=== PATIENT | male | born 1945 | race Caucasian/White ===

== ENCOUNTER → 2016-08-01 12:08 | Outpatient (CLI) | payer MEDICARE ==
[2016-08-01 14:08] LABS: BASOPHILS 0.3 % (0.0-2.0); EOSINOPHILS 3.6 % (0-7); HEMATOCRIT 46.8 % (42.0-54.0); HEMOGLOBIN 15.4 g/dL (13.5-17.5); IMMATURE GRANULOCYTES 0.3 % (0-5); LYMPHOCYTES 19.9 % (15-50); MCH 29.8 pg (26.0-34.0); MCHC 32.9 g/dL (31.0-37.0); MCV 90.5 fL (80.0-100.0); MEAN PLATELET VOLUME 9.8 fL (7.4-10.4); MONOCYTES 12.1 % (2-11); NEUTROPHILS 63.8 % (40-80); PLATELET COUNT 257 10x3/uL (130-400); RBC 5.17 10x6/uL (4.20-6.10); RDW 14.7 % (11.5-14.5); WBC 7.6 10x3/uL (4.8-10.8)
[2016-08-02 14:21] LABS: IMMUNOGLOBULIN E 205 IU/mL (0-100)
== END | disposition home or self-care (01) ==
LOC: D.RT 12:08
PROVIDERS: Internal Medicine Pulmonary Disease
DX: J44.9 Chronic obstructive pulmonary disease, unspecified (principal)

== ENCOUNTER → 2017-10-15 08:28 | Outpatient (CLI) | payer MEDICARE | END | disposition home or self-care (01) | LOC: D.RT 08:28 | DX: J98.11 Atelectasis (principal) ==

== ENCOUNTER → 2018-05-18 08:15 | Outpatient (CLI) | payer MEDICARE | END | disposition home or self-care (01) | LOC: D.RAD 08:15 | DX: M54.16 Radiculopathy, lumbar region (principal) ==

== ENCOUNTER → 2018-10-15 08:34 | Outpatient (CLI) | payer MEDICARE | END | disposition home or self-care (01) | LOC: D.RT 08:34 | PROVIDERS: ATTEND Internal Medicine Pulmonary Disease | DX: J44.9 Chronic obstructive pulmonary disease, unspecified (principal) ==

== ENCOUNTER → 2019-04-05 09:13 | Outpatient (CLI) | payer MEDICARE | END | disposition home or self-care (01) | LOC: D.CT 09:13 | PROVIDERS: ATTEND Internal Medicine Pulmonary Disease | DX: J98.11 Atelectasis (principal) ==

== ENCOUNTER → 2019-06-02 08:49 | Outpatient (CLI) | payer MEDICARE | END | disposition home or self-care (01) | LOC: D.HCCARDIO 08:49 | PROVIDERS: ATTEND Internal Medicine Cardiovascular Disease | DX: I25.10 Atherosclerotic heart disease of native coronary artery without angina pectoris (principal) ==

== ENCOUNTER 2019-06-17 06:22 | Outpatient (CLI) | payer MEDICARE ==
[~2019-06-17] VITALS: Ht 167.6 cm; Wt 100.0 kg
--- NOTE | ~2019-06-17 | HEMODYNAMI ---
PATIENT:RADHA NICOLAS MEDICAL RECORD: [id number] : 47 LOCATION:[facility] ADMISSION DATE: 06/17/19 Generatedon:06/17/20198:25 Patient name: RADHA NICOLAS Patient #: [id number] SSN: [id number] : 1945 Date of study: 06/17/2019 Page: Of Hemodynamic Procedure Report Patient Data Patient Demographics Procedure consent was obtained First Name: RADHA Gender: Male Last Name: MARIA ISABEL : 1945 Middle Initial: ADELIA Age: 74 year(s) Patient #: [id number] Race: SSN: [id number] Additional ID: [id number] Contact details [address]: [address] [place] [address] State: [place] City: [place] Zip code: [address] Admission Admission Data Admission Date: 06/17/2019 Admission Time: 6:22 Arrival Date: 06/17/2019 Arrival Time: 8:00 Admit Source: Other Insurance Payor: Medicare [facility] #: [id number] Height (in.): 66.14 BSA: 2.09 (m2) Height (cm.): 168 BMI: 35.43 (kg/m2) Weight (lbs.): 220.46 Weight (kg.): 100 Lab Results Lab Result Date: 06/17/2019 Lab Result Time: 0:00 Biochemistry Name Units Result Min Max BUN mg/dl 24 --(----)-* 7 18 Creatinine mg/dl 1 --(--*-)-- 0.6 1.3 eGFR ml/min 90 --(*---)-- 90 120 NONAFRICAN CBC Name Units Result Min Max Hemoglobin g/dl 16 --(--*-)-- 13.5 17.5 Procedure Procedure Types Cath Procedure Diagnostic Procedure LHC LHC w/Coronaries Sedation Charges Moderate Sedation up to 30 minutes Procedure Description Procedure Date Procedure Date: 06/17/2019 Procedure Start Time: 8:08 Procedure End Time: 8:21 Procedure Staff Name Function Keith Hall MD Performing Physician Marlene Figueredo RT Monitor Denisha Richardson RT Scrub Shaun Davalos RN Nurse Procedure Data Cath Procedure Fluoroscopy Diagnostic fluoroscopy Total fluoroscopy Time: 3.8 time: 3.8 min min Diagnostic fluoroscopy Total fluoroscopy dose: dose: 1041 mGy 1041 mGy Contrast Material Contrast Material Type Amount (ml) Isovue 300 64 Entry Location Entry Primary Successful Side Size Upsize Upsize Entry Closure Morales ccessful Closure Location (Fr) 1 (Fr) 2 (Fr) Remarks Device Remarks Radial Right 6 Fr Mechanical artery Short Compression Estimated blood loss: 5 ml Diagnostic catheters Device Type Used For End Catheter Placement DIAGNOSTIC Demarco 110cm Multi-vessel 5Fr catheter ([id number]) Angiography Procedure Complications No complications Procedure Medications Medication Administration Route Dosage 0.9% NaCl I.V. 100 ml/hr Oxygen etCO2 Nasal cannula 2 l/min Heparin Flush Bag added to field 2 bags (1000units/500ml NS) Lidocaine 2% added to field 20 Radial Cocktail added to field 1 syringe (Verapamil 2mg/Nitro 400mcg/Heparin 1500units) Versed I.V. 2 mg Fentanyl I.V. 100 mcg Radial Cocktail I.A. 1 syringe (Verapamil 2mg/Nitro 400mcg/Heparin 1500units) Hemodynamics Rest BSA: 2.09 (m2) HGB: 16 (g/dl) O2 Consumption: Estimated: 240.48 (ml/min) O2 Cons umption indexed: Estimated:115.06 (ml/min/m) Heart Rate: 69 (bpm) Pressure Samples Time Site Value (mmHg) Purpose Heart Use Rate(bpm) 8:11 LV 113/-8,4 Snapshot 90 Snapshots Pre Cath Intra NCS Post Cath Vital Signs Time Heart Resp SPO2 etCO2 NIBP (mmHg) Rhythm Pain Sedation Rate (ipm) (%) (mmHg) Status Level (bpm) 7:58:27 68 18 94 0 113/87(98) NSR 0 (11) 10(A) , No pain 8:02:29 72 18 95 0 122/81(102) NSR 0 (11) 10(A) , No pain 8:06:34 71 11 92 21.2 115/80(92) NSR 0 (11) 10(A) , No pain 8:10:38 70 11 94 35.7 129/78(95) NSR 0 (11) 10(A) , No pain 8:14:50 88 12 93 33.4 110/66(81) NSR 0 (11) 9(A) , No pain 8:18:54 77 13 93 35.7 114/73(92) NSR 0 (11) 9(A) , No pain Medications Time Medication Route Dose Verified Delivered Reason Notes Effectiveness by by 7:59:23 0.9% NaCl I.V. 100 Shaun Shaun Per ml/hr Susannah Davalos physician RN RN 7:59:31 Oxygen etCO2 2 l/min Shaun Shaun for low 02 Nasal Lorigan Susannah sats cannula RN RN 7:59:41 Heparin Flush added 2 bags Shaun Shaun used for Bag to Susannah Davalos procedure (1000units/500ml field RN RN NS) 7:59:53 Lidocaine 2% added 20ml Shaun Shaun for local to vial Lorigan Lorigan anesthetic RN RN 8:00:05 Radial Cocktail added 1 Shaun Shaun used for (Verapamil to syringe Lorigan Katarinaigan procedure 2mg/Nitro RN RN 400mcg/Heparin 1500units) 8:06:58 Versed I.V. 2 mg Shaun Shaun for sedation Susannah Davalos RN RN 8:07:10 Fentanyl I.V. 100 mcg Shaun Shaun for sedation Susannah Davalos RN RN 8:10:42 Radial Cocktail I.A. 1 Shaun Keith for (Verapamil syringe Susannah Hall MD vasodilation 2mg/Nitro RN 400mcg/Heparin 1500units) Procedure Log Time Note 7:41:11 Diagnostic Cath Status : Elective 7:41:38 Shaun Davalos RN sent for patient. Start room use. 7:41:39 Time tracking: Regular hours (M-F 7:00 - 5:00) 7:41:45 Plan of Care:Hemodynamics will remain stable., Cardiac rhythm will remain stable., Comfort level will be maintained., Respiratory function will remain adequate., Patient/ family verbilizes understanding of procedure., Procedure tolerated without complication., Recovers from procedure without complications.. 7:46:52 Informed consent obtained and on chart 7:47:16 Admit Source: Other 7:47:21 Arrival Date: 06/17/2019 8:00:00 AM 7:47:39 Insurance Payor : Medicare 7:47:56 Patient Height : 66.14 inches 7:48:00 Patient Weight : 220.46 lbs 7:48:44 Lab Result : eGFR NONAFRICAN 90 ml/min 7:48:44 Lab Result : Hemoglobin 16 g/dl 7:48:44 Lab Result : BUN 24 mg/dl 7:48:44 Lab Result : Creatinine 1 mg/dl 7:48:54 Patient received from Pre/Post Procedure Room to CCL 2 Alert and oriented. Tansferred to table in Supine position. 7:48:56 Warm blankets applied, and brandon hugger turned on for patient comfort. 7:48:56 Correct patient and procedure confirmed by team. 7:48:57 ECG and BP/O2 sat monitors applied to patient. 7:49:05 Risk of Mortality: 0.4 7:49:08 Risk of blood transfusion: 0.9 7:49:11 Risk of ADOLFO: 0.6 7:49:18 1) 90+ Normal kidney functon but urine findings or structural abnormalities or genetic trait point to kidney disease. 7:49:20 Maximum allowable contrast dose (3.7 X eGFR X 0.75)249 ml. 7:53:30 Vital chart was started 7:59:23 0.9% NaCl 100 ml/hr I.V. was administered by Shaun Davalos RN; Per physician; Verbal order read back and verified. 7:59:31 Oxygen 2 l/min etCO2 Nasal cannula was administered by Shaun Davalos RN; for low 02 sats; Verbal order read back and verified. 7:59:41 Heparin Flush Bag (1000units/500ml NS) 2 bags added to field was administered by Shaun Davalos RN; used for procedure; Verbal order read back and verified. 7:59:53 Lidocaine 2% 20ml vial added to field was administered by Shaun Davalos RN; for local anesthetic; Verbal order read back and verified. 8:00:05 Radial Cocktail (Verapamil 2mg/Nitro 400mcg/Heparin 1500units) 1 syringe added to field was administered by Shaun Davalos RN; used for procedure; Verbal order read back and verified. 8:01:38 Baseline sample Acquired. 8:01:42 Rhythm: sinus rhythm 8:01:43 Full Disclosure recording started 8:01:48 H&P Date Dictated: 06/17/2019 Within 30 days and on chart., H&P Addendum completed by physician on day of procedure. (MUST COMPLETE FOR ALL OUTPATIENTS). 8:01:50 Pre-procedure instructions explained to patient. 8:01:50 Pre-op teaching completed and patient verbalized understanding. 8:01:52 Family in patients room. 8:01:53 Patient NPO since Midnight. 8:01:55 Is the patient allergic to Iodine/contrast media? No. 8:01:56 Was the patient premedicated? Yes 8:01:57 Is patient on blood thinner?No 8:01:59 Patient diabetic? No. 8:02:02 Previous problem with sedation/anesthesia? No ? 8:02:04 Snore? Yes 8:02:05 Sleep apnea? Yes 8:02:06 Deviated septum? No 8:02:06 Opens mouth fully? Yes 8:02:07 Sticks out tongue? Yes 8:02:09 Airway obstruction? Yes copd 8:02:13 Dentures? Yes in tight 8:02:17 Pre procedure: right dorsailis pedis pulse 2+ Normal; easily identifiable; not easily obliterated 8:02:20 Pre procedure: left dorsailis pedis pulse 2+ Normal; easily identifiable; not easily obliterated 8:02:23 Patient pain scale 0/10 ?. 8:02:28 IV patent on arrival in left forearm with 0.9% NaCl at KVO. 8:02:33 Lab results completed and on chart. 8:02:39 Right Radial & Right Groin area was prepped with chlora-prep and draped in sterile fashion 8:02:40 Alarms reviewed by R. N. 8:02:41 Sharps counted by scrub and verified by R.N. 8:02:42 Physician arrived 8:02:43 --------ALL STOP TIME OUT------ 8:02:43 Final Timeout: patient, procedure, and site verified with staff and physician. All members of the team are in agreement. 8:02:45 Right Radial & Right Groin site verified by team. 8:02:49 Fire Safety Assessment: A--An alcohol-based skin anteseptic being used preoperatively., C--Open oxygen or nitrous oxide is being used., D--An ESU, laser, or fiber-optic light is being used. 8:02:52 Physical assessment completed. ASA score P 2 - A patient with mild systemic disease as per Keith Hall MD. 8:02:56 Sedation plan: IV Moderate Sedation Medication:Versed, Fentanyl 8:03:00 Use device set Radial Dx or PCI 8:03:01 ACIST Syringe (77991) opened to sterile field. 8:03:01 Medline Cath Pack ([id number]) opened to sterile field. 8:03:01 Bag Decanter (2002S) opened to sterile field. 8:03:02 ACIST Hand Control (66559) opened to sterile field. 8:03:02 ACIST Manifold (77589) opened to sterile field. 8:03:03 Tegaderm 4 x 4 (1626W) opened to sterile field. 8:03:03 MBrace Wrist Support ([id number]) opened to sterile field. 8:03:04 NEEDLE Cook 21G 4cm Radial (H86633) opened to sterile field. 8:03:06 SHEATH 6FR RAIN (3972270) opened to sterile field. 8:03:07 EMERALD Guide Wire (302-485) opened to sterile field. 8:04:46 Zero performed for pressure channel P1 8:05:55 Zero performed for pressure channel P1 8:06:58 Versed 2 mg I.V. was administered by Shaun Davalos RN; for sedation; Verbal order read back and verified. 8:07:10 Fentanyl 100 mcg I.V. was administered by Shaun Davalos RN; for sedation; Verbal order read back and verified. 8:08:39 Procedure started. 8:08:45 Local anesthetic to right radial artery with Lidocaine 2% by Keith Hall MD.INITIAL ACCESS ONLY 8:10:05 A 6 Fr Short sheath was inserted into the Right Radial artery 8:10:13 A DIAGNOSTIC Demarco 110cm 5Fr catheter (776634) was advanced over the wire and used for Multi-vessel Angiography. 8:10:42 Radial Cocktail (Verapamil 2mg/Nitro 400mcg/Heparin 1500units) 1 syringe I.A. was administered by Keith Hall MD; for vasodilation; Verbal order read back and verified. 8:11:36 EF : 55 % 8:12:06 Injector settings: Ml/sec: 5, Volume: 15, 8:12:26 LCA angiography performed. 8:12:34 Injector settings: Ml/sec: 3, Volume: 6, 8:18:22 RCA angiography performed. 8:18:25 Injector settings: Ml/sec: 3, Volume: 6, 8:19:37 Catheter removed. 8:19:41 ZEPHYR REGULAR TR BAND (959842) opened to sterile field. 8:19:57 ACCDominant side:Right 8:20:03 Sheath removed intact; hemostasis achieved with Mechanical Compression to the Right Radial artery. 8:20:15 Procedure ended.(Physican Out) 8:20:26 Fluoroscopy time 03.80 minutes. 8:20:29 Fluoroscopy dose: 1041 mGy 8:20:29 Flurop Dose total: 1041 8:20:34 Dose Area Product 09160 mGy/cm. 8:20:42 Contrast amount:Isovue 300 64ml. 8:20:45 Maximum allowable dose exceeded? No. 8:20:46 Sharps counted by scrub and verified by R.N. 8:20:48 [place] band inflated with 10cc of air. 8:20:50 Insertion/operative site no bleeding no hematoma. 8:20:55 Post right radial artery:stable 8:20:56 Post Procedure Pulses reassessed and unchanged 8:20:59 Post procedure rhythm: unchanged. 8:21:02 Estimated blood loss: 5 ml 8:21:04 Post procedure instruction explained to patient.Patient verbalizes understanding. 8:21:05 Patient needs reinforcement of post procedure teaching. 8:21:18 Procedure type changed to Cath procedure, Diagnostic procedure, LHC, C w/Coronaries, Sedation Charges, Moderate Sedation up to 30 minutes 8:21:19 Procedure and supply charges have been captured, reviewed, submitted and are correct. 8:21:23 Procedure Complication : No complications 8:21:25 Vital chart was stopped 8:21:30 [facility] Findings: MVD- CABG consult 8:21:31 Operative report dictated upon procedure completion. 8:21:32 See physician's report for complete and final results. 8:21:41 Report given to Pre/Post Procedure Room. 8:21:44 Patient transfered to Pre/Post Procedure Room with Stretcher. 8:21:49 Procedure ended. 8:21:49 Full Disclosure recording stopped 8:21:54 End room use (Document Last) Device Usage Item Name Manufacture Quantity Catalog Hospital Part Current Minima l Lot# / Number Charge Number Stock Stock Serial# Code ACIST Acist 1 82305 966678 284913 923014 20 Syringe Medical (62095) Systems Inc Medline Medline 1 [id number] 33444 316871 5 Cath Pack ([id number]) Bag Microtek 1 2001S 095060 92772 369100 5 Decanter Medical Inc. (2001S) ACIST Hand Acist 1 00539 292881 858598 431636 5 Control Medical (77684) Systems Inc ACIST Acist 1 35677 361048 842054 592229 5 Manifold Medical (96311) Systems Inc Tegaderm 4 3M 1 1626W 369430 555230 643736 5 x 4 (1626W) MBrace Advanced 1 140-0250-00 911095 54980 478597 5 Wrist Vascular Support Dynamics ([id number]) NEEDLE Cook Cook Medical 1 U04021 186408 270752 249798 5 21G 4cm Radial (M82461) SHEATH 6FR Cardinal 1 5369617 153227 1441283 786863 5 RAIN Health (7989683) EMERALD Cardinal 1 502-653 121355 753635 892959 5 Guide Wire Health (495-052) DIAGNOSTIC Terumo 1 40-7517 084952 512886 716095 5 Demarco 110cm 5Fr catheter (586245) ZEPHYR Cardinal 1 627758 323560 7779390 316648 5 REGULAR TR Health BAND (040990) Signature Audit [place] Stage Time Signature Unsigned Intra-Procedure 06/17/2019 Marlene Figueredo 8:22:59 AM RT(R) Intra-Procedure 06/17/2019 Shaun 8:24:35 AM Susannah GRANT Intra-Procedure 06/17/2019 Keith Hall MD 8:25:10 AM Signatures Performing Physician : Signature : Keith Hall MD Date : Time : Monitor : Marlene Terell RT Signature : Date : Time : Nurse : Shaun Lorigan Signature : RN Date : Time : [address] [place] [address]
[2019-06-17] MEDS ORDERED: TRELEGY ELLIPT1 EACH INH (06:36)
[2019-06-17] MEDS ORDERED: ALBUTEROL SULF8.5 GM INH (06:38)
[2019-06-17] MEDS ORDERED: HCTZ25 MG PO (06:38)
[2019-06-17] MEDS ORDERED: FLUTICASONE PRO16 GM NASAL (06:38)
[2019-06-17] MEDS ORDERED: LISINOPRIL10 MG PO (06:39)
[2019-06-17] MEDS ORDERED: IPRAT-ALBUT 0.5-3 ML UPD (06:39)
[2019-06-17] MEDS ORDERED: MUCINEX600 MG PO (06:39)
[2019-06-17] MEDS ORDERED: SINGULAIR10 MG PO (06:39)
[2019-06-17] MEDS ORDERED: K-DUR20 MEQ PO (06:41)
[2019-06-17] MEDS ORDERED: GLUCOSAMINE HC500 MG PO (06:41)
[2019-06-17] MEDS ORDERED: RED YEAST RICE600 MG PO (06:41)
[2019-06-17] MEDS ORDERED: FERROUS SULFAT325 MG PO (06:41)
[2019-06-17] MEDS ORDERED: MULTI-DAY VITAM1 TAB PO (06:42)
[2019-06-17] MEDS ORDERED: VITAMIN D31000 UNIT PO (06:42)
[2019-06-17 06:50] VITALS: BP 126/87; BMI 35.6
[2019-06-17 07:04] LABS: BASOPHILS 0.3 % (0-2); EOSINOPHILS 2.7 % (0-7); IMMATURE GRANULOCYTES 0.5 % (0-5); LYMPHOCYTES 15.9 % (15-50); MCH 30.4 pg (26.0-34.0); MCV 89.4 fL (80.0-100.0); MEAN PLATELET VOLUME 9.3 fL (7.4-10.4); MONOCYTES 10.3 % (2-11); NEUTROPHILS 70.3 % (40-80); PLATELET COUNT 283 10x3/uL (130-400); RBC 5.26 10x6/uL (4.20-6.10); RDW 14.6 % (11.5-14.5); WBC 6.3 10x3/uL (4.8-10.8)
[2019-06-17 07:39] LABS: ALT (SGPT) 30 U/L (10-68); CALC OSMOLALITY 279 mosm/kg (275-300); CALCIUM 9.2 mg/dL (8.5-10.1); CARBON DIOXIDE 24.4 mmol/L (21.0-32.0); CHLORIDE - SERUM 104 mmol/L (98-107); CHOL - HDL RATIO 3.1 ratio (2.3-4.9); CHOLESTEROL, TOTAL 214 mg/dL (0-200); GLUCOSE 94 mg/dL (74-106); HDL CHOLESTEROL 69 mg/dL (32-96); LDL CHOLESTEROL 134 mg/dL (0-100); LDL-HDL RATIO 1.9 ratio (1.5-3.5); POTASSIUM - SERUM 4.3 mmol/L (3.5-5.1); SODIUM 138 mmol/L (136-145); TRIGLYCERIDE 59 mg/dL (30-200); UREA NITROGEN 24 mg/dL (7-18); eGFR NON AFRICAN AMERICAN 78 mL/min (90-120)
--- NOTE | 2019-06-17 08:30 | NUR ---
PATIENT ARRIVED TO ROOM 6, PLACED ON CM. VSS ON 2L NC. RIGHT Z BAND WITH WRIST IMMOBILIZER IN PLACE, NO S/S OF BLEEDING OR HEMATOMA.
--- NOTE | 2019-06-17 08:45 | NUR ---
PATIENT AWAKE, SITTING UP IN BED. VSS ON 2L NC. RIGHT RADIAL SITE IS CDI, NO S/S OF BLEEDING OR HEMATOMA. PATIENT EATING SANDWICH AND DRINKING SODA PER REQUEST, NO N/V. NO C/O PAIN, NUMBNESS, OR TINGLING.
--- NOTE | 2019-06-17 09:15 | NUR ---
PATIENT AWAKE, FAMILY PRESENT AT BEDSIDE. PHYSICIAN AT BEDSIDE TO UPDATE PATIENT AND FAMILY. VSS ON 2L NC. RIGHT RADIAL SITE IS CDI, NO S/S OF BLEEDING OR HEMATOMA.
--- NOTE | 2019-06-17 09:45 | NUR ---
2CC OF AIR REMOVED FROM Z BAND, NO S/S OF BLEEDING OR HEMATOMA. NO C/O PAIN, NUMBNESS, OR TINGLING. VSS ON 1L NC. NO N/V.
--- NOTE | 2019-06-17 10:15 | NUR ---
3CC OF AIR REMOVED FROM Z BAND, NO S/S OF BLEEDING OR HEMATOMA. NO C/O PAIN, NUMBNESS, OR TINGLING. VSS ON ROOM AIR. NO N/V. FAMILY PRESENT AT BEDSIDE.
[2019-06-17 10:40] VITALS: Ht 167.6 cm; Wt 100.0 kg
--- NOTE | 2019-06-17 10:45 | NUR ---
DR BERG PRESENT AT BEDSIDE TO UPDATE PATIENT AND FAMILY. VSS ON ROOM AIR. REMAINING AIR REMOVED FROM Z BAND, NO S/S OF BLEEDING OR HEMATOMA. DRESSING APPLIED IS CDI. NO N/V. NO C/O PAIN, NUMBNESS, OR TINGLING.
--- NOTE | 2019-06-17 11:15 | NUR ---
IV REMOVED. WRITTEN AND VERBAL DISCHARGE EDUCATION GIVEN TO PATIENT AND SPOUSE, BOTH VOICE UNDERSTANDING. RIGHT RADIAL DRESSING IS CDI, NO S/S OF BLEEDING OR HEMATOMA.
--- NOTE | 2019-06-17 11:25 | NUR ---
PATIENT VOIDED WITHOUT DIFFICULTY. PATIENT TRANSPORTED VIA WHEELCHAIR TO CAR WITH SPOUSE DRIVING, ALL BELONGINGS WITH PATIENT.
== END 2019-06-17 11:25 ==
LOC: D.CATH 06:22
PROVIDERS: ATTEND Internal Medicine Cardiovascular Disease
DX: I25.119 Atherosclerotic heart disease of native coronary artery with unspecified angina pectoris (principal); R94.30 Abnormal result of cardiovascular function study, unspecified; I10 Essential (primary) hypertension; J44.9 Chronic obstructive pulmonary disease, unspecified; R06.00 Dyspnea, unspecified

== ENCOUNTER 2019-06-25 07:34 | Inpatient (IN) | payer MEDICARE ==
[~2019-06-25] VITALS: Ht 167.6 cm; Wt 108.2 kg
[~2019-06-25 07:34] MED LIST: ALBUTEROL SULF8.5 GM INH; FERROUS SULFAT325 MG PO; FLUTICASONE PRO16 GM NASAL; GLUCOSAMINE HC500 MG PO; HCTZ25 MG PO; IPRAT-ALBUT 0.5-3 ML UPD; K-DUR20 MEQ PO; LISINOPRIL10 MG PO; MUCINEX600 MG PO; MULTI-DAY VITAM1 TAB PO; RED YEAST RICE600 MG PO; SINGULAIR10 MG PO; TRELEGY ELLIPT1 EACH INH; VITAMIN D31000 UNIT PO
[2019-06-25 09:20] LABS: APPEARANCE CLEAR (CLEAR); BILIRUBIN NEGATIVE (NEGATIVE); COLOR YELLOW (YELLOW); GLUCOSE NEGATIVE (NEGATIVE); KETONE NEGATIVE (NEGATIVE); NITRITE NEGATIVE (NEGATIVE); PROTEIN NEGATIVE (NEGATIVE); UROBILINOGEN NORMAL (NORMAL)
[2019-06-25 09:51] LABS: BASOPHILS 0.3 % (0-2); EOSINOPHILS 2.1 % (0-7); HEMATOCRIT 46.9 % (42.0-54.0); HEMOGLOBIN 15.9 g/dL (13.5-17.5); IMMATURE GRANULOCYTES 0.6 % (0-5); LYMPHOCYTES 17.3 % (15-50); MCH 30.4 pg (26.0-34.0); MCHC 33.9 g/dL (31.0-37.0); MCV 89.7 fL (80.0-100.0); MEAN PLATELET VOLUME 9.3 fL (7.4-10.4); MONOCYTES 12.4 % (2-11); NEUTROPHILS 67.3 % (40-80); PLATELET COUNT 272 10x3/uL (130-400); RBC 5.23 10x6/uL (4.20-6.10); RDW 14.4 % (11.5-14.5)
[2019-06-25 10:02] LABS: INR 1.08 (0.85-1.17); PROTIME 13.5 SECONDS (11.6-15.0)
[2019-06-25 10:03] LABS: APTT 31.4 SECONDS (22.8-39.4)
[2019-06-25 10:14] LABS: ALBUMIN 4.1 g/dL (3.4-5.0); ANION GAP 11.9 mmol/L (8-16); BILIRUBIN - TOTAL 0.49 mg/dL (0.2-1.3); CALCIUM 9.6 mg/dL (8.5-10.1); CARBON DIOXIDE 27.8 mmol/L (21.0-32.0); CREATININE - SERUM 1.2 mg/dL (0.6-1.3); PHOSPHOROUS 3.7 mg/dL (2.5-4.9); POTASSIUM - SERUM 4.7 mmol/L (3.5-5.1); PROTEIN - SERUM 7.5 g/dL (6.4-8.2); T4 THYROXIN - FREE 0.85 ng/dL (0.76-1.46); THYROID STIMULATING HORMONE 4.45 uIU/mL (0.36-3.74); URIC ACID 6.9 mg/dL (2.6-7.2)
[2019-06-28] VITALS (48 sets, daily range): BP systolic 94–142; BP diastolic 53–97; BMI 32.3; BMI 37.4
--- NOTE | 2019-06-28 13:50 | NUR ---
ARRIVED TO ROOM VIA BED AROUND 1346. ON VENT R-14, TV 500,FIO 100%, PEEP 5. ETT 8.0 24 AT THE LIP. CVL TO RIJ WITH PLASMOLYTE, SHE, DOPAMINE AND AMIODARONE INFUSING. SEE IV FLOWSHEET FOR RATES. MIDSTERNAL INCISION WITH DRESSING C/D/I. SUBSTERNAL CT X 2 TO 20CM SUCTION. LEFT CARMELO DRAIN IN PLACE. TPM WIRES IN PLACE. CAMPOS IN PLACE WITH CLEAR YELLOW URINE NOTED. LEANDRA TO RIGHT WRIST SECURED WITH WRIST PROTECTOR. WRIST RESTRAINTS APPLIED PER ORDER. RLE HARVEST SITES WRAPPED WITH COBAN DRESSING. CONNECTED TO CIRCUS ARTIST. SIDE RAILS UP X 2. NURSE AT BEDSIDE, MONITORING CLOSELY.
--- NOTE | 2019-06-28 14:43 | NUR ---
ABG RESULTS REPORTED TO DR. BERG. 1 AMP OF BICARB ORDERED.
--- NOTE | 2019-06-28 15:29 | NUR ---
DR. BERG AT BEDSIDE. PT ON 5MCG/MIN OF NITRO. DOPAMINE DECREASED TO 2MCG/KG/MIN PER DR. BERG. WANTS DOPAMINE AT 2MCG/KG/MIN THROUGH OUT NIGHT. OKAY TO WEAN OFF DOPAMINE IF PT BECOMES HYPERTENSIVE.
--- NOTE | 2019-06-28 17:19 | NUR ---
ON SPONTANOUES BREATHING AT THIS TIME. BP STABLE AT 124/68. DAUGHTER AT BEDSIDE. WILL CONTINUE TO MONITOR.
--- NOTE | 2019-06-28 18:00 | NUR ---
ABG RESULTS REPORTED TO DR. BERG AND DR. CHINN. HAMILTON TO EXTUBATE.
--- NOTE | 2019-06-28 18:03 | NUR ---
EXTUBATED AT 1802. PLACED ON 4L OF O2 VIA NC.
--- NOTE | 2019-06-28 18:31 | NUR ---
MORPHINE GIVEN FOR PAIN PER ORDERS. PT PULLS 750-1000 ON INSENTIVE SPIROMETER.
--- NOTE | 2019-06-28 18:54 | NUR ---
ICE CHIPS PROVIDED. NO SWALLOWING DIFFICULTIES NOTED. WILL CONTINUE TO MONITOR.
--- NOTE | 2019-06-28 23:38 | NUR ---
PATIENT UP TO DANGEL AT BEDSIDE FOR APPROX 10MIN. PATIENT TOLERATED WELL WITH NO DISTRESS NOTED. PATIENT BACK TO BED. CALL LIGHT WITHIN REACH, BED IN LOW POSITION.
[2019-06-29] VITALS (40 sets, daily range): BP systolic 92–123; BP diastolic 55–73; Ht 167.6 cm; Wt 108.2 kg
[2019-06-29 06:39] LABS: BASOPHILS 0.1 % (0-2); EOSINOPHILS 0 % (0-7); HEMATOCRIT 41.8 % (42.0-54.0); HEMOGLOBIN 13.9 g/dL (13.5-17.5); IMMATURE GRANULOCYTES 0.3 % (0-5); MCH 30.1 pg (26.0-34.0); MCHC 33.3 g/dL (31.0-37.0); MCV 90.5 fL (80.0-100.0); MONOCYTES 9.6 % (2-11); RBC 4.62 10x6/uL (4.20-6.10); RDW 15.2 % (11.5-14.5); WBC 15.5 10x3/uL (4.8-10.8)
[2019-06-29 06:52] LABS: PLATELET COUNT 205 10x3/uL (130-400)
[2019-06-29 07:06] LABS: ANION GAP 16.2 mmol/L (8-16); BILIRUBIN - TOTAL 0.52 mg/dL (0.2-1.3); CALCIUM 7.6 mg/dL (8.5-10.1); CARBON DIOXIDE 23.6 mmol/L (21.0-32.0); CREATININE - SERUM 1.1 mg/dL (0.6-1.3); MAGNESIUM - SERUM 1.9 mg/dL (1.8-2.4); PHOSPHOROUS 2.8 mg/dL (2.5-4.9); POTASSIUM - SERUM 3.8 mmol/L (3.5-5.1); PROTEIN - SERUM 5.7 g/dL (6.4-8.2)
--- NOTE | 2019-06-29 09:45 | NUR ---
LEVOPHED TURNED OFF AT THIS TIME.
--- NOTE | 2019-06-29 10:00 | NUR ---
SPOUSE AT BEDSIDE. NO VISITORS ALLOWED TODAY AND TOMORROW PER SPOUSE. NO VISITOR SIGNED PLACED ON ROOM DOOR WAY.
--- NOTE | 2019-06-29 10:00 | NUR ---
TRANSFERRED BACK TO BED. IV FLUIDS DISCONTINUED. LEANDRA ELIAS'Cecilia PER ORDERS. WILL CONTINUE TO MONITOR.
--- NOTE | 2019-06-29 11:30 | NUR ---
CHEST TUBES REMOVED BY DR. BERG'S NURSE. TOLERATED WELL. RESTING COMFORTABLY IN BED.
--- NOTE | 2019-06-29 13:21 | NUR ---
RATES PAIN 7/10 AT INCISION SITE. PERCOCET 10MG PO GIVEN PER ORDERS.
--- NOTE | 2019-06-29 18:20 | NUR ---
TRANSFERRED BACK TO BED. PT TOLERATED WELL. DENIES FURTHER NEEDS AT THIS TIME. WILL CONTINUE TO MONITOR.
--- NOTE | 2019-06-29 19:00 | NUR ---
Patient assessment complete at this time, no changes noted from nurse report, vital signs remained stable at this time. Patient awake alert. Chest pain 6 out of 10. No distress noted, will monitor for changes in patient condition.
--- NOTE | 2019-06-29 19:07 | NUR ---
ORAL CARE DONE WITH PERIDEX
--- NOTE | 2019-06-29 21:00 | NUR ---
PT VISITING WITH FAMILY AT BEDSIDE, PT MOVED UP IN BED AND ADVISED THAT HIS BACK WAS MUCH BETTER, PT ASKED ABOUT HIS PAIN MEDICINE AND STATES THAT IT WAS AROUND 2200 WHEN IT WAS DUE, INFORMATION WAS CONFIRMED, PT DENIED ANYTHING OTHER CONCENRS AT THIS TIME, VSS, WILL MONITOR FOR CHANGES
--- NOTE | 2019-06-29 23:00 | NUR ---
PT REASSESSEMENT COMPLETED AT THIS TIME, NO CHANGES NOTED, VSS, WILL CONT TO MONITOR FOR CHANGES
[2019-06-30] VITALS (23 sets, daily range): BP systolic 97–123; BP diastolic 57–96
--- NOTE | 2019-06-30 01:00 | NUR ---
PT RESTING WITH EYES CLOSED ON BIPAP, NO DISTRES NOTED, VSS, WILL MONITOR FOR CHANGES
--- NOTE | 2019-06-30 03:00 | NUR ---
PT REASSESSMENT COMPLETED AT THIS TIME, NO CHANGES NOTED, VSS, WILL MONITOR FOR CHANGES
--- NOTE | 2019-06-30 05:42 | NUR ---
I&O AND DAILY WEIGHT DOCUMENTATION COMPLETED AT THI TIME, NO CHANGES NOTED IN PT COND.
[2019-06-30 06:14] LABS: HEMATOCRIT 36.8 % (42.0-54.0); HEMOGLOBIN 12.1 g/dL (13.5-17.5); MCH 29.7 pg (26.0-34.0); MCHC 32.9 g/dL (31.0-37.0); MCV 90.4 fL (80.0-100.0); MEAN PLATELET VOLUME 9.6 fL (7.4-10.4); RBC 4.07 10x6/uL (4.20-6.10); RDW 15.3 % (11.5-14.5); WBC 16.7 10x3/uL (4.8-10.8)
[2019-06-30 06:24] LABS: ALBUMIN 2.7 g/dL (3.4-5.0); ANION GAP 11.5 mmol/L (8-16); BILIRUBIN - TOTAL 0.81 mg/dL (0.2-1.3); CALCIUM 7.7 mg/dL (8.5-10.1); CARBON DIOXIDE 26.4 mmol/L (21.0-32.0); CREATININE - SERUM 1.3 mg/dL (0.6-1.3); POTASSIUM - SERUM 3.9 mmol/L (3.5-5.1); PROTEIN - SERUM 5.7 g/dL (6.4-8.2)
--- NOTE | 2019-06-30 07:30 | NUR ---
SHIFT REPORT RECEIVED. SITTING UP IN CHAIR. RATES PAIN 5/10 AT INCISION SITE WHEN HE MOVES OR COUGHS. MISTERNAL INCISION DRESSING C/D/I. CARMELO DRAIN IN PLACE, TPM WIRES SECURED, DRESSING C/D/I. RLE HARVEST SITES MARIA DOLORES. RIJ CVL SALINE LOC. ON 6L O2 VIA NC. CAMPOS CATHETER IN PLACE WITH YELLOW URINE NOTED. CALL LIGHT IN REACH. DENIES FURTHER NEEDS AT THIS TIME. WILL CONTINUE TO MONITOR.
--- NOTE | 2019-06-30 09:05 | NUR ---
AMBULATED WITH PHYSICAL THERAPY. AM MEDS GIVEN. ATE 90% OF BREAKFAST TRAY. FAMILY AT BEDSIDE. DENIES FURTHER NEED. WILL CONTINUE TO MONITOR.
--- NOTE | 2019-06-30 11:26 | NUR ---
RE-ASSESSMENT COMPLETED. NO ACUTE CHANGES FROM PREVIOUS ASSESSMENT. RATES PAIN 7/10 AT INCISION. PERCOCET 10MG TAB GIVEN PER ORDERS. PT DENIES FURTHER NEEDS. WILL CONTINUE TO MONITOR.
--- NOTE | 2019-06-30 13:15 | NUR ---
CHG BATH GIVEN. COMPLETE LINEN CHANGE PROVIDED. SUBSTERNAL DRESSING CHANGED PER ORDERS. PIVIDONE OINTMENT AND 4X4'S SECURED WITH TAGEDERM DRESSING. TPM WIRES COILED AND SECURED. CVL DRESSING CHANGED USING STERILE TECHNIQUE.
--- NOTE | 2019-06-30 19:34 | NUR ---
ORAL CARE DONE WITH PERIDEX
--- NOTE | 2019-06-30 20:30 | NUR ---
DAUGHTER AND GRANDSON AT BEDSIDE, MEDS GIVEN PER MAR/ORDERRS, VSS, PT AMBULATED FROM CHAIR TO BED WITH MINIMAL ASSIST, DENIES PAIN OR NEEDS AT THIS TIME, WILL CONTINUE TO MONITOR
[2019-07-01] VITALS (36 sets, daily range): BP systolic 91–122; BP diastolic 50–81
--- NOTE | 2019-07-01 06:00 | NUR ---
PT AMBULATED TO BEDSIDE CHAIR WITH MINIMAL ASSIST, VSS, NSR ON CM, CALL LIGHT IN REACH, DAUGHTER AT BEDSIDE, WILL CONTINUE TO MONITOR
[2019-07-01 06:18] LABS: ALBUMIN 2.4 g/dL (3.4-5.0); ANION GAP 11.9 mmol/L (8-16); BILIRUBIN - TOTAL 0.67 mg/dL (0.2-1.3); CALCIUM 7.7 mg/dL (8.5-10.1); CARBON DIOXIDE 26.1 mmol/L (21.0-32.0); CREATININE - SERUM 1.1 mg/dL (0.6-1.3); PROTEIN - SERUM 5.5 g/dL (6.4-8.2)
--- NOTE | 2019-07-01 07:00 | NUR ---
RECEIVED REPORT ON PATIENT AND ASSUMED CARE OF PATIENT. PATIENT ALERT AND ORIENTED X 4, SITTING UP IN BEDSIDE CHAIR. BBS - CLEAR AND EQUAL ON 02 AT 6 LPM VIA NC, SPO2 - 94%, STATES ON O2 AT HOME ONLY AT NIGHT WHEN ON CPAP. CM - NSR. CAMPOS CATH IN PLACE WITH YELLOW UOP NOTED. PATIENT STATES PAIN CONTROLLED WITH MEDICATIONS. RIGHT IJ CVL IN PLACE, NSL. HEAD TO TOE ASSESSMENT COMPLETED.
--- NOTE | 2019-07-01 07:25 | NUR ---
LABS REDRAWN AND SENT TO LAB, PT SITTING UP IN CHAIR, VSS
[2019-07-01 07:36] LABS: BASOPHILS 0.1 % (0-2); EOSINOPHILS 0.2 % (0-7); HEMATOCRIT 33.7 % (42.0-54.0); HEMOGLOBIN 11.1 g/dL (13.5-17.5); IMMATURE GRANULOCYTES 0.4 % (0-5); LYMPHOCYTES 3.8 % (15-50); MCH 29.6 pg (26.0-34.0); MCHC 32.9 g/dL (31.0-37.0); MCV 89.9 fL (80.0-100.0); MEAN PLATELET VOLUME 9.6 fL (7.4-10.4); MONOCYTES 9.4 % (2-11); NEUTROPHILS 86.1 % (40-80); PLATELET COUNT 152 10x3/uL (130-400); RBC 3.75 10x6/uL (4.20-6.10); RDW 15.1 % (11.5-14.5); WBC 14.4 10x3/uL (4.8-10.8)
--- NOTE | 2019-07-01 07:53 | NUR ---
PATIENT GIVEN BREAKFAST TRAY. VSS. NO NEEDS AT THIS TIME.
--- NOTE | 2019-07-01 08:15 | NUR ---
PATEINT ATE 100% OF BREAKFAST. VSS. NO NEEDS AT THIS TIME.
--- NOTE | 2019-07-01 09:00 | NUR ---
EMPTIED 70 CC SEROSANGUINOUS FLUID FROM CARMELO DRAIN, BULB COMPRESSED. VSS. WALKED 250 FT WITH PT IN HALLWAY. TOLERATED WELL.
--- NOTE | 2019-07-01 10:40 | NUR ---
PATIENT SITTING UP IN BEDSIDE CHAIR, USES IS GETTING BETWEEN 1000 AND 1250. VSS. NO NEEDS AT THIS TIME.
--- NOTE | 2019-07-01 10:45 | NUR ---
REASSESSMENT COMPLETED. PATIENT SITTING IN BEDSIDE CHAIR, VSS. NO NEEDS AT THIS TIME.
--- NOTE | 2019-07-01 11:37 | NUR ---
DR. ARCINIEGA AT ROOM UPDATED AND EXAMINES PATIENT.
--- NOTE | 2019-07-01 11:51 | NUR ---
PATIENT GIVEN LUNCH TRAY. VSS. NO NEEDS AT THIS TIME.
--- NOTE | 2019-07-01 13:03 | NUR ---
Nutrition Follow-up: POD 3 CABG. Eating well. Diet: Cardiac PO intake: 70-100% Wt: 234.6# (07/01); 234# (06/29) Labs noted: Na 132, Ca 7.7, Alb 2.4 Meds noted: Senokot, Colace, Zofran -Continue current diet as tolerated. -RD following.
--- NOTE | 2019-07-01 13:08 | NUR ---
PATIENT ATE APPROXIMATELY 75% OF LUNCH. VSS.
--- NOTE | 2019-07-01 14:23 | NUR ---
PATIENT RESTING QUIETLY IN BEDSIDE CHAIR. VSS. NO NEEDS AT THIS TIME.
--- NOTE | 2019-07-01 14:55 | NUR ---
REASSESSMENT COMPLETE. VSS. NO NEEDS AT THIS TIME.
--- NOTE | 2019-07-01 16:31 | NUR ---
CORDIS CVL RIGHT IJ DISCONTINUED PER ORDER, DIRECT PRESSURE X 2 MINUTES, CLEANDED AND DRESSED WITH 2X2 AND TEGADERM, NO HEMATOMA OR BLEEDING NOTED. IV 22 GA STARTED TO RIGHT FA, POSITIVE BLOOD RETURN AND FLUSHES EASILY. NSL. CAMPOS CATH DISCONTINUED PER ORDER. VSS. GIVEN DINNER TRAY.
--- NOTE | 2019-07-01 16:41 | NUR ---
PATIENT ATE APPROXIMATELY 50% OF DINNER TRAY. STATES NOT MUCH OF AN APETITE THIS EVENING. VSS. VISITING WITH GRANDCHILDREN AT BEDSIDE.
--- NOTE | 2019-07-01 17:58 | MORECARE ---
CASE MANAGEMENT DISCHARGE SUMMARY PATIENT: RADHA NICOLAS UNIT: [id number] ADM DATE: 06/28/19 AGE: 74 : 47 SEX: M ROOM/BED: [facility] AUTHOR: JUNAID CORTES PHYSICIAN: REFERRING PHYSICIAN: GEETA BERG MD DATE OF SERVICE: 07/01/19 Discharge Plan Patient Name: RADHA NICOLAS [facility] [facility] 1945 Planned Disposition: Home Anticipated Discharge Date: Discharge Date: Expected LOS: Initial Reviewer: [email or web address] Initial Review Date: 06/28/2019 Generated: 07/01/19 6:57 pm Patient Name: RADHA NICOLAS Page [phone] at 1758 All edits/amendments must be made on the electronic document DICTATION DATE: 07/01/191756 NAT INSTRUCTOR: MARILIN 07/01/191756 RPT#: [id number] IN DATE: STATUS: ADM IN [facility] [address] [place] [address] END OF REPORT
--- NOTE | 2019-07-01 18:07 | MORECARE ---
CASE MANAGEMENT DISCHARGE SUMMARY PATIENT: RADHA NICOLAS UNIT: [id number] ADM DATE: 06/28/19 AGE: 74 : [birth year] SEX: M ROOM/BED: [facility] AUTHOR: JUNAID CORTES PHYSICIAN: REFERRING PHYSICIAN: GEETA BERG MD DATE OF SERVICE: 07/01/19 Discharge Plan Patient Name: RADHA NICOLAS [facility] [facility] 1945 Planned Disposition: Home Anticipated Discharge Date: Discharge Date: Expected LOS: Initial Reviewer: [email or web address] Initial Review Date: 06/28/2019 Generated: 07/01/19 7:07 pm DCPIA - Discharge Planning Initial Assessment Updated by [email or web address]: Jessica Blanca on 07/01/19 6:05 pm * Is the patient Alert and Oriented? Yes * How many steps to enter\exit or inside your home? * PCP [facility] * [facility] * Preadmission Environment Home with Family * ADLs Independent * Other Equipment HOME 02 / PORTABLE, CPAP, NEBULIZER - [facility] * List name and contact numbers for known caregivers / representatives who currently or will assist patient after discharge: SAL NICOLAS - SPOUSE - [phone] * Verbal permission to speak to the caregivers and representatives has been obtained from the patient. Yes * Community resources currently utilized None * Additional services required to return to the preadmission environment? No * Can the patient safely return to the preadmission environment? Yes * Has this patient been hospitalized within the prior 30 days at any hospital? No Last DP export: 07/01/19 4:58 pm Patient Name: RADHA NICOLAS Page 13173 at 1807 All edits/amendments must be made on the electronic document DICTATION DATE: 07/01/191806 AIRCRAFT DELIVERY CHECKER: MARILIN 07/01/191806 RPT#: [id number] DC DATE: STATUS: ADM IN [facility] [address] [place] [address] END OF REPORT
--- NOTE | 2019-07-01 18:16 | MORECARE ---
CASE MANAGEMENT DISCHARGE SUMMARY PATIENT: RADHA NICOLAS UNIT: [id number] ADM DATE: 06/28/19 AGE: 74 : [birth year] SEX: M [facility] AUTHOR: SEBASTIAN,DOC PHYSICIAN: REFERRING PHYSICIAN: GEETA BERG MD DATE OF SERVICE: 07/01/19 Discharge Plan Patient Name: RADHA NICOLAS Facility: [facility]:[place] : 1945 Planned Disposition: Home Anticipated Discharge Date: Discharge Date: Expected LOS: Initial Reviewer: [email or web address] Initial Review Date: 06/28/2019 Generated: 07/01/19 7:15 pm Comments DCP- Discharge Planning Updated by [email or web address]: Jessica Blanca on 07/01/19 5:[address] LATE ENTRY 06/29/19 Patient Name: RADHA NICOLAS Admission Status: Urgent Accout number: [id number] Admission Date: 06-28-2019 : 1945 Admission Diagnosis: Attending: GEETA BERG Current LOS: 3 Anticipated DC Date: Planned Disposition: Home Primary Insurance: [facility] MEDICARE SOLUTIONS Discharge Planning Comments: CM met with patient at bedside after explaining CM role and obtaining verbal consent. Patient lives at home with his Loretta where he is independent with his care and plans to return there upon discharge. Patient feels this would be a safe discharge. CM discussed availability / needs of home health and medical equipment. Patient has home 02 / portable, CPAP and Nebulizer with [employer]. Patient denies any discharge needs at this time. Patient states he will have his family drive him home upon discharge. CM will continue to follow and assist as needed with discharge planning / needs. Manager E Learning: Jessica Blanca DCPIA - Discharge Planning Initial Assessment Updated by [email or web address]: Jessica Blanca on 07/01/19 6:05 pm * Is the patient Alert and Oriented? Yes * How many steps to enter\exit or inside your home? * PCP [facility] * Pharmacy [facility] * Preadmission Environment Home with Family * ADLs Independent * Other Equipment HOME 02 / PORTABLE, CPAP, NEBULIZER - [facility] * List name and contact numbers for known caregivers / representatives who currently or will assist patient after discharge: LORETTA NICOLAS - [facility] - [phone] * Verbal permission to speak to the caregivers and representatives has been obtained from the patient. Yes * Community resources currently utilized None * Additional services required to return to the preadmission environment? No * Can the patient safely return to the preadmission environment? Yes * Has this patient been hospitalized within the prior 30 days at any hospital? No Last DP export: 07/01/19 5:07 pm Patient Name: RADHA NICOLAS Page 95241 at 1816 All edits/amendments must be made on the electronic document DICTATION DATE: 07/01/191814 DIGITAL COMMENTATOR: MARILIN 07/01/191814 RPT#: [id number] DC DATE: STATUS: ADM IN [facility] [address] [place] [address] END OF REPORT
--- NOTE | 2019-07-01 23:00 | NUR ---
REASSESSMENT COMPLETE PER FLOW SHEET, NO ACUTE CHANGES FROM PRIOR ASSESSMENT, PT AWAKE AND ALERT, DENIES PAIN OR NEEDS, VSS, NSR ON CM, ALL PULSES PALPABLE, ON BIPAP @40% FiO2, REPOSITIONED IN BED FOR COMFORT, LARGE CUP ICE WATER GIVEN PER REQUEST, CALL LIGHT IN REACH, BED ALARM ON, WILL CONTINUE TO MONITOR
[2019-07-02] VITALS (30 sets, daily range): BP systolic 99–126; BP diastolic 40–96
--- NOTE | 2019-07-02 03:00 | NUR ---
REASSESSMENT COMPLETE PER FLOW SHEET, NO ACUTE CHANGES NOTED FROM PRIOR ASSESSMENT, VSS, NSR ON CM, PULSES PALPABLE, PTT ON BIPAP @40% FiO2, DENIES PAIN OR NEEDS AT THIS TIME, AMBULATED TO BATHROOM WITH MINIMAL ASSIST, CLEAR YELLOW VOID NOTED, CALL LIGHT IN REACH, BED ALARM ON, LARGE CUP ICE WATER GIVEN PER REQUEST, WILL CONTINUIE TO MONITOR
--- NOTE | 2019-07-02 05:00 | NUR ---
PT OOB TO BATHROOM, MINIMAL ASSIST NEEDED, AMBULATES WITH STRONG GAIT AND NO ASSISTANCE NEEDED, PT VOID CLEAR YELLOW URINE, ASSISTED PT IN BEDSIDE CHAIR, COMPLETE BATH AND LINEN CHANGE, NO YELLOW GOWN IN CVICU, PLACED PT IN JOHNS GOWN, ELISSA HOSE AND NON SKID SOCKS REPLACED, CALL LIGHT IN REACH, ALARMS ON, VSS, NSR ON CM, WILL CONTINUE TO MONITOR
[2019-07-02 05:47] LABS: BASOPHILS 0 % (0-2); EOSINOPHILS 0.8 % (0-7); HEMATOCRIT 32.2 % (42.0-54.0); HEMOGLOBIN 10.7 g/dL (13.5-17.5); IMMATURE GRANULOCYTES 0.4 % (0-5); LYMPHOCYTES 6.7 % (15-50); MCH 29.5 pg (26.0-34.0); MCHC 33.2 g/dL (31.0-37.0); MCV 88.7 fL (80.0-100.0); MEAN PLATELET VOLUME 9.6 fL (7.4-10.4); MONOCYTES 10.5 % (2-11); NEUTROPHILS 81.6 % (40-80); RBC 3.63 10x6/uL (4.20-6.10); WBC 12.1 10x3/uL (4.8-10.8)
[2019-07-02 06:25] LABS: ALBUMIN 2.4 g/dL (3.4-5.0); ANION GAP 14.3 mmol/L (8-16); BILIRUBIN - TOTAL 0.76 mg/dL (0.2-1.3); CALCIUM 8.1 mg/dL (8.5-10.1); CARBON DIOXIDE 24.3 mmol/L (21.0-32.0); CREATININE - SERUM 1.1 mg/dL (0.6-1.3); POTASSIUM - SERUM 3.6 mmol/L (3.5-5.1); PROTEIN - SERUM 5.4 g/dL (6.4-8.2)
[2019-07-02 06:30] LABS: PLATELET COUNT 199 10x3/uL (130-400)
--- NOTE | 2019-07-02 07:00 | NUR ---
RECEIVED BEDSIDE REPORT ON PAITENT AND ASSUMED CARE. PATIENT SITTING UP IN BEDSIDE CHAIR, ALERT AND ORIENTED X 4. VSS. IV 22 GA TO RIGHT FA, PATENT, FLUSHES EASILY. BBS - CLEAR AND EQUAL. CM - SR. HEAD TO TOE ASSESSMETN COMPLETED. CARMELO DDRAIN COMPRESSED WITH MINIMAL SEROUS OUTPUT NOTED.
--- NOTE | 2019-07-02 07:41 | NUR ---
PATIENT GIVEN BREAKFAST TRAY. VSS. NO NEEDS AT THIS TIME.
--- NOTE | 2019-07-02 08:08 | NUR ---
PATIENT WITH NOTED ST ELEVATION IN LEAD II ON CM, NO C/O OF CHEST PAIN, SOB OR NAUSEA, DOES C/O OF LOW BACK PAIN. 12 LEAD ECG COMPLETED INDICATES ACUTE ME, WITH ST ELEVATION IN INFERIOR LEADS. DR. BUCKLEY NOTIFIED.
--- NOTE | 2019-07-02 08:30 | NUR ---
PATIENT ATE 100% OF BREAKFAST. VSS.
--- NOTE | 2019-07-02 09:00 | NUR ---
PATIENT UP WALKING WITH PT IN [place]. TOLERATES WELL. TO BATHROOM, NO BM BUT VOIDS 250 CC URINE. BACK TO BEDSIDE CHAIR. VSS.
--- NOTE | 2019-07-02 09:04 | NUR ---
Nutrition Follow-up: POD 4 CABG Diet: Cardiac PO intake: 50-100% Wt: 234.6# (07/02); 234.6# (07/01); 231.4# (06/28) Last BM: 06/27 Labs noted: Na 135, Ca 8.1, Alb 2.4 Meds noted: Senokot, Colace -Continue current diet as tolerated. -RD following.
--- NOTE | 2019-07-02 10:36 | NUR ---
PATIENT BACK TO BED FROM BEDSIDE CHAIR, TO PREPARE FOR REMOVAL OF CARMELO DRAIN AND TPM WIRES. VSS.
--- NOTE | 2019-07-02 11:13 | NUR ---
REASSESSMENT COMPLETED. VSS. RESTING QUIELTY IN BED. NO NEEDS AT THIS TIME.
--- NOTE | 2019-07-02 11:54 | NUR ---
PATIENT CARMELO DRAIN PULLED BY MANJU RN WITH DR. BUCKLEY. TOLERATED WELL. TPM WIRES REMAIN IN PLACE. VSS. UP TO CHAIR FOR LUNCH.
--- NOTE | 2019-07-02 14:11 | NUR ---
PATIENT ATE 100% OF LUNCH TRAY. VSS. UP TO BATHROOM, NO BM BUT VOIDED 250 CC URINE. BACK TO BEDSIDE CHAIR.
--- NOTE | 2019-07-02 15:02 | NUR ---
REASSESSMENT COMPLETE. VSS. NO NEEDS AT THIS TIME.
--- NOTE | 2019-07-02 16:05 | NUR ---
PATIENT UP TO RESTROOM, VOIDS 300 CC URINE. WALKS IN HALLWAY 250 FT, TOLERATES WELL ON PORTABLE O2 AT 4 LPM. BACK TO BEDSIDE CHAIR, VSS. ON O2 VIA NC AT 3 LPM.
--- NOTE | 2019-07-02 16:35 | NUR ---
PATIENT GIVEN DINNER TRAY. VISITING WITH GRANDCHILDREN AT BEDSIDE. VSS. NO NEEDS AT THIS TIME.
--- NOTE | 2019-07-02 17:09 | NUR ---
PATIENT ATE 100% OF DINNER TRAY. VSS. NO NEEDS AT THIS TIME.
--- NOTE | 2019-07-02 19:00 | NUR ---
REPORT RECEIVED. RECEIVED PATIENT UP IN BEDSIDE CHAIR, AWAKE ALERT AND ORIENTED X 4. ASSESSMENT COMPLETED PER FLOW SHEET WITH NO ACUTE DISTRESS OBSERVED. MONITORS CONNECTED TO PATIENT WITH ALARMS SET. VSS. CALL LIGHT IN REACH AND ABLE TO UTILIZE TO MAKE NEEDS KNOWN.
--- NOTE | 2019-07-02 19:50 | NUR ---
AMBULATED TO BATHROOM AND TO BED. MONITORS CONNECTED TO PATIENT. VSS. AYSE WELL. GAIT STEADY.
--- NOTE | 2019-07-02 21:00 | NUR ---
AWAKE AND ALERT. VSS. VISITING WITH FAMILY AT BEDSIDE. CALL LIGHT IN REACH. PM MEDS TAKEN WITHOUT DIFF.
--- NOTE | 2019-07-02 23:00 | NUR ---
REASSESSMENT COMPLETED PER FLOW SHEET WITH NO ACUTE DISTRESS OBSERVED. VSS. CALL LIGHT IN REACH
[2019-07-03] VITALS (20 sets, daily range): BP systolic 99–144; BP diastolic 60–94
--- NOTE | 2019-07-03 01:00 | NUR ---
RESTING WITH EYES CLOSED, ROUSES EASILY. VSS
--- NOTE | 2019-07-03 03:00 | NUR ---
REASSESSMENT PER FLOW SHEET WITH NO ACUTE DISTRESS OBSERVED. VSS. CALL LIGHT IN REACH
--- NOTE | 2019-07-03 05:00 | NUR ---
RESTING WITH EYES CLOSED, EASILY ROUSED AND ALERT. VSS
[2019-07-03 06:05] LABS: HEMATOCRIT 30.5 % (42.0-54.0); MCH 29.6 pg (26.0-34.0); MCHC 32.8 g/dL (31.0-37.0); MCV 90.2 fL (80.0-100.0); MEAN PLATELET VOLUME 9.2 fL (7.4-10.4); RBC 3.38 10x6/uL (4.20-6.10); RDW 14.9 % (11.5-14.5); WBC 8.4 10x3/uL (4.8-10.8)
[2019-07-03 06:20] LABS: ALBUMIN 2.2 g/dL (3.4-5.0); ALKALINE PHOSPHATASE 148 U/L (46-116); BILIRUBIN - TOTAL 0.58 mg/dL (0.2-1.3); CALC OSMOLALITY 275 mosm/kg (275-300); CALCIUM 8.3 mg/dL (8.5-10.1); CARBON DIOXIDE 28.1 mmol/L (21.0-32.0); CHLORIDE - SERUM 99 mmol/L (98-107); GLUCOSE 98 mg/dL (74-106); POTASSIUM - SERUM 3.7 mmol/L (3.5-5.1); PROTEIN - SERUM 5.8 g/dL (6.4-8.2); SODIUM 135 mmol/L (136-145); UREA NITROGEN 30 mg/dL (7-18); eGFR NON AFRICAN AMERICAN 78 mL/min (90-120)
[2019-07-03 06:21] LABS: ALT (SGPT) 66 U/L (10-68)
--- NOTE | 2019-07-03 08:52 | NUR ---
PT OOB IN CHAIR. BREAKFAST TRAY SERVED AND PT EATING WITH OUT DIFFICULTY. PT C/O PAIN WHEN COUGHING. PO PAIN MEDS GIVEN. FAMILY AT BS.
--- NOTE | 2019-07-03 11:39 | NUR ---
DR BUCKLEY HERE ON ROUNDS.
--- NOTE | 2019-07-03 14:07 | NUR ---
PT C/O CONSTIPATION. MIRALAX GIVEN.
--- NOTE | 2019-07-03 17:17 | NUR ---
PT DAUGHTER STATES THAT HE IS WHEEZING MORE THAN USUAL. PRN UD ORDERED. PO PAIN MED GIVEN AND ENCOURAGED TO COUGH AND DEEP BREATH AND USE I.S.
--- NOTE | 2019-07-03 19:00 | NUR ---
REPORT RECEIVED. RECEIVED PATIENT UP IN BEDSIDE CHAIR. AWAKE ALERT AND ORIENTED X 4. ASSESSMENT COMPLETED PER FLOW SHEET WITH NO ACUTE DISTRESS OBSERVED. MONITORS CONNECTED TO PATIENT WITH ALARMS SET. VSS. CALL LIGHT IN REACH AND ABLE TO UTILIZE TO MAKE NEEDS KNOWN.
--- NOTE | 2019-07-03 21:00 | NUR ---
UP IN BEDSIDE CHAIR.VSS. VISITING WITH FAMILY. CALL LIGHT IN REACH
--- NOTE | 2019-07-03 21:45 | NUR ---
AMBULATED TO BATHROOM AND TO BED. AYSE WELL. VSS. CALL LIGHT IN REACH
--- NOTE | 2019-07-03 23:00 | NUR ---
REASSESSMENT COMPLETED PER FLOW SHEET WITH NO ACUTE DISTRESS OBSERVED. VSS. CALL LIGHT IN REACH
[2019-07-04] VITALS (20 sets, daily range): BP systolic 106–144; BP diastolic 59–95
--- NOTE | 2019-07-04 01:00 | NUR ---
RESTING WITH EYES CLOSED, EASILY ROUSED AND ALERT. VSS
--- NOTE | 2019-07-04 01:30 | NUR ---
AMBULATED TO BATHROOM AND BACK TO BED. C/O FEELING SHORT OF AIR. AUDIBLE WHEEZING BUL. IS USED. RT NOTIFIED. VSS
--- NOTE | 2019-07-04 03:00 | NUR ---
REASSESSMENT COMPLETED PER FLOW SHEET WITH NO ACUTE DISTRESS OBSERVED. VSS. CALL LIGHT IN REACH
--- NOTE | 2019-07-04 05:00 | NUR ---
RESTING WITH EYES CLOSED, EASILY ROUSED AND ALERT. VSS
--- NOTE | 2019-07-04 07:00 | NUR ---
REPORT RECEIVED CARE ASSUMED ASSESSMENT DONE SEE FLOW SHEET. VSS.
[2019-07-04 07:11] LABS: ALBUMIN 1.9 g/dL (3.4-5.0); BILIRUBIN - DIRECT 0.02 mg/dL (0.00-0.30); BILIRUBIN - INDIRECT 0.81 mg/dL (0.00-1.00); BILIRUBIN - TOTAL 0.83 mg/dL (0.2-1.3); PROTEIN - SERUM 5.6 g/dL (6.4-8.2)
[2019-07-04 08:02] LABS: BASOPHILS 0.3 % (0-2); EOSINOPHILS 2.9 % (0-7); HEMATOCRIT 34.9 % (42.0-54.0); HEMOGLOBIN 11.5 g/dL (13.5-17.5); IMMATURE GRANULOCYTES 1.2 % (0-5); LYMPHOCYTES 7.3 % (15-50); MCH 29.8 pg (26.0-34.0); MCV 90.4 fL (80.0-100.0); MEAN PLATELET VOLUME 9.2 fL (7.4-10.4); MONOCYTES 12.7 % (2-11); NEUTROPHILS 75.6 % (40-80); PLATELET COUNT 259 10x3/uL (130-400); RBC 3.86 10x6/uL (4.20-6.10); RDW 14.8 % (11.5-14.5); WBC 9.3 10x3/uL (4.8-10.8)
[2019-07-04 08:26] LABS: ALBUMIN 2.3 g/dL (3.4-5.0); ALKALINE PHOSPHATASE 173 U/L (46-116); ALT (SGPT) 96 U/L (10-68); CALC OSMOLALITY 272 mosm/kg (275-300); CALCIUM 8.7 mg/dL (8.5-10.1); CARBON DIOXIDE 25.6 mmol/L (21.0-32.0); CHLORIDE - SERUM 100 mmol/L (98-107); GLUCOSE 95 mg/dL (74-106); PROTEIN - SERUM 6.3 g/dL (6.4-8.2); SODIUM 135 mmol/L (136-145); eGFR NON AFRICAN AMERICAN 78 mL/min (90-120)
[2019-07-04 08:29] LABS: UREA NITROGEN 22 mg/dL (7-18)
--- NOTE | 2019-07-04 11:00 | NUR ---
0900 MEDS GIVEN PER MAR. VSS. 1100 REASSESSMENT DONE SEE FLOW SHEET VSS. WILL CONTINUE TO MONITOR.
--- NOTE | 2019-07-04 15:00 | NUR ---
1300 PT RESTING IN BED VSS. NO SIGNS OF ACUTE DISTRESS NOTED WILL CONTINUE TO MONITOR. 1500 REASSESSMENT DONE SEE FLOW SHEET VSS
--- NOTE | 2019-07-04 17:00 | NUR ---
IO COLLECTED. WATER AND ICE CHIPS GIVEN.
--- NOTE | 2019-07-04 19:00 | NUR ---
REPORT RECEIVED. RECEIVED PATIENT UP IN BEDIDE CHAIR. AWAKE ALERT AND ORIENTED X 4. ASSESSMENT COMPLETED PER FLOW SHEET WITH NO ACUTE DISTRESS OBSERVED. MONITORS ATTATCHED TO PATIENT WITH ALARMS SET. VSS. CALL LIGHT IN REACH AND ABLE TO UTILIZE TO MAKE NEEDS KNOWN
--- NOTE | 2019-07-04 21:00 | NUR ---
AWAKE AND ALERT. VSS. VISITING WITH FAMILY
--- NOTE | 2019-07-04 23:00 | NUR ---
REASSESSMENT COMPLETED PER FLOW SHEET WITH NO ACUTE DISTRESS OBSERVED. VSS. CALL LIGHT IN REACH
[2019-07-05] VITALS (18 sets, daily range): BP systolic 110–155; BP diastolic 63–91
--- NOTE | 2019-07-05 11:00 | NUR ---
0700 ASSESSMENT DONE SEE FLOW SHEET VSS. 0900 PT RESTING IN CHAIR. VSS. NO SIGNS OF ACUTE DISTRESS NOTED.
--- NOTE | 2019-07-05 11:00 | NUR ---
REASSESSMENT DONE SEE FLOW SHEET. VSS.
--- NOTE | 2019-07-05 11:13 | TEE ---
PATIENT:RADHA NICOLAS MEDICAL RECORD: [id number] LOCATION:[place] [address] AGE OF PATIENT: 74 ADMISSION DATE: 06/28/19 SEX: M REFERRING PHYSICIAN: INTERPRETING PHYSICIAN: ABELINO VAZQUEZ MD TRANSESOPHAGEAL ECHOCARDIOGRAM Date: 06/28/19 GIUSEPPE CHARGE Y INDICATIONS: CABG PREMEDICATIONS: PATIENT'S RESPONSE PROCEDURE DOPPLER MEASUREMENTS: LVIT LA 4.0 PA RA LVOT RVOT Asc. Ao AV Gradient Peak AV Mean AV Area MV Gradient Peak MV Mean MV Area INTERPRETATION: Doppler: 2-D: COLOR FLOW DOPPLER NORMAL SALINE STUDY: MISCELLANOUS: DIAGNOSIS: PLAN: Clinical Allergist:1 Dr. Vazquez Career Services Representative: Lou COOK COMMENTS: PACS DATE OF SERVICE: 06/28/2019 PROCEDURE: Transesophageal echo evaluation of valvular structures during bypass surgery. FINDINGS: 1. Left ventricular chamber size is within normal limits. Left ventricular systolic function is normal. Overall ejection fraction estimated at 55%. 2. Left atrium, right atrium and right ventricular chamber sizes are within TRANSESOPHAGEAL ECHOCARDIOGRAM REPORT [id number] RADHA NICOLAS normal limits. 3. Valvular structures have normal structure and motion. 4. Doppler interrogation reveals no significant valvular insufficiency or stenosis. 5. No evidence of pericardial effusion or left ventricular thrombus. TRANSINT:[id number] Voice Confirmation ID: [id number] DOCUMENT ID: [id number] at 1113 CC: [id number] DICTATION DATE: 06/29/19 1006 UNIVERSITY LIBRARIAN: 06/30/19 0555 ADM IN [place] [id number] [place] [address]
--- NOTE | 2019-07-05 12:57 | OP ---
PATIENT NAME: RADHA NICOLAS MEDICAL RECORD: [id number] :[birth year] LOCATION:[id number] ADMISSION DATE:06/28/19 SURGEON: ALEX BERG MD DATE OF OPERATION: 06/28/2019 SURGEON: Alex Berg MD WAIST PRESSER: None. PROCEDURE PERFORMED: 1. Coronary artery bypass graft times 5 (left internal mammary to LAD, reverse saphenous vein graft from aorta to first diagonal, aorta to first obtuse marginal sequenced on the second obtuse marginal, aorta to posterolateral branch right coronary artery). 2. Endoscopic saphenous vein harvest. PREOPERATIVE DIAGNOSIS: Coronary artery disease. POSTOPERATIVE DIAGNOSIS: Coronary artery disease. ANESTHESIA: General endotracheal anesthesia. ESTIMATED BLOOD LOSS: Total cardiopulmonary bypass with Cell Saver retransfusion. COMPLICATIONS: None. SPECIMENS: None. CONDITION: Stable. DISPOSITION: CV-ICU. OPERATIVE FINDINGS: 1. Transesophageal echocardiography with moderately dilated left ventricle approximately 6 cm and diastolic dimension, good contractility. 2. Large dilated and fatty heart. 3. Good quality greater saphenous vein. The lower leg portion slightly smaller caliber and used for bypass to the posterolateral branch. 4. Good quality left internal mammary artery. The LAD was a severely diseased 1.5 mm vessel actually smaller than the first diagonal. First diagonal 1.75 mm with severe disease, plaque throughout the anastomosis in the soft spot. 5. First obtuse marginal 1.5 mm second obtuse marginal was a chronically dissected vessel 1.5 mm may not be a candidate for long-term patency. 6. Posterolateral branch right coronary 2.0 mm. OPERATIVE INDICATION: Coronary artery disease. DESCRIPTION OF PROCEDURE: The patient was brought to the operating suite. General anesthesia was obtained. The patient was prepped and draped. Greater saphenous vein harvested in the right lower extremity utilizing endoscopic technique. Side branches were divided with electrocautery. Vessels ligated proximally and distally and removed. Side branches were clipped and thinned sites were oversewn. The leg was irrigated and closed in 2 layers. OPERATIVE REPORT [id number] RADHA NICOLAS Median sternotomy incision was made. Subcutaneous tissue divided with electrocautery. The sternum was divided with a saw. The left hemisternum was elevated. Left pleural cavity was entered. Left internal mammary artery and vein was taken down as a pedicle graft. Sternal retractor was placed. Pericardium was opened. Heparin was given. Aorta was cannulated. Dual stage venous cannula was inserted. The internal mammary dissected as a pedicle graft and clipped distally. The patient was placed in cardiopulmonary bypass. Sites for distal anastomosis were selected. Antegrade cardioplegia cannula was inserted. Crossclamp was placed. Cardioplegia given antegrade and this was repeated at 20 minute intervals including down the completed vein grafts. Distal anastomoses were performed in standard technique. Proximal anastomosis with single cross-clamp technique. Aortic root de-aired, proximal anastomosis tied down. Vein grafts de-aired and flow restored. Proximal and distal anastomotic sites inspected for bleeding. The patient was fully rewarmed, weaned from cardiopulmonary bypass and was stable. The patient was decannulated. Aortic cannulation site was oversewn. Protamine was given. Atrial and ventricular pacing wires were placed. Drains were placed in mediastinum and left pleural cavity. Left chest was evacuated and irrigated. Pericardial fat was loosely reapproximated in midline internal mammary harvest site inspected for bleeding. Sternum was closed with wires. Fascia was closed. Subcutaneous tissue was closed. Skin was closed. Dermabond was placed. The needle and sponge counts were correct. The patient was taken to ICU in stable condition. TRANSINT:[id number] Voice Confirmation ID: [id number] DOCUMENT ID: [id number] ALEX BERG MD at 1257 CC: EDGAR DURON M.D. and QUEENIE KENYON DO [id number] DICTATION DATE: 06/28/19 1434 MANAGER ART: 06/28/19 2226 ADM IN [place] [address] [place] [address]
--- NOTE | 2019-07-05 12:58 | NUR ---
Nutrition Follow-up: POD 7 CABG. NPO this AM for abd U/S. Pt reports eating fairly well overall. Diet: AHA DM PO intake: 50-100% Wt: 239# (07/05); 234.6# (07/02); 231.4# (06/28) Last BM: 07/04 Labs reviewed Meds noted: Solumedrol, Lactulose, Miralax, Senokot -Rec cardiac diet; A1C 5.9. -RD following.
--- NOTE | 2019-07-05 15:00 | NUR ---
1300 PT AMBULATED WITH PHYSICAL THERAPY. AUDIBLE WHEEZES HEARD FROM DISTANCE DURING AMBULATION
--- NOTE | 2019-07-05 15:08 | NUR ---
REASSESSMENT COMPLETE VSS
--- NOTE | 2019-07-05 19:15 | NUR ---
PT SITTING IN CHAIR AT BEDSIDE. AWAKE AND ALERT. DENIES PAIN. VSS. O2 3L NC. ASSISTED TO RESTROOM PER REQUEST. VOIDED. SMALL AMOUT OF STOOL.
--- NOTE | 2019-07-05 21:40 | NUR ---
ASSISTED BACK TO BED. ADJUSTED FOR COMFORT. BIPAP ON PER REQUEST.
[2019-07-06] VITALS (15 sets, daily range): BP systolic 106–142; BP diastolic 50–81
--- NOTE | 2019-07-06 04:00 | NUR ---
OOB TO BATHROOM. VOIDED AND PASSING GAS. NO BM.TRANSFERRED TO CHAIR AT BEDSIDE INDEPENDENTLY.
--- NOTE | 2019-07-06 07:00 | NUR ---
REPORT RECEVIED FROM THE OFF GOING RN. SEE ASSESSMENT IN THE PTS FLOW SHEET. PT SITTING OOB IN HIS BEDSIDE CHAIR. PT DENIES PAIN. DRESSING TO LEFT GROIN NOTED TO HAVE SEROUS DRAINAGE. YOMI DRAIN TO LEFT GROIN COMPRESSED WITH SEROUS DRAINAGE. BILATERAL DP AND PT DOPPERABLE. MURMOR NOTED. PT STATED HE HAS HAD A CHRONIC MURMOR THAT IS NON SYPTOMATIC. CALL LIGHT IN REACH. WILL CONT POC.
--- NOTE | 2019-07-06 07:00 | NUR ---
REPORT RECEVIED FROM THE OFF GOING RN. SEE ASSESMENT IN THE PTS FLOW SHEET. PT SITTING OOB IN HIS BEDSIDE CHAIR. VSS. MIDSTERNAL AND SUBSTERAL DRESISNG C/D/I WITH TPM WIRE NOTED COILED. 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 NSR ON THE MONITOR. PT JORGE PAIN AT THIS TIME. INSTRUCTED THE PT TO USE HIS IS 10X'S/H. CALL LIGHT IN REACH. WILL CONT POC.
--- NOTE | 2019-07-06 08:22 | NUR ---
BREAKFAST TRAY PROVIDED FOR THE PT. CALL LIGHT IN REACH. WILL CONT POC.
--- NOTE | 2019-07-06 11:09 | NUR ---
REPORT RECEIVED. PT UP IN CHAIR. ALERT AND ORIENTED. NO FEVER NOTED. RIGHT FOREARM PIV SALINE LOC. TPM WIRES COILED UNDER DRESSING. MIDSTERNAL DRESSING IN PLACE. SCD'S ON BILATERAL LOWER EXTREMITIES. PT DENIES ANY NEEDS AT THIS TIME. WILL CONTINUE TO MONITOR.
[2019-07-06] MEDS ORDERED: ASPIRIN EC81 M1 PO (12:27)
[2019-07-06] MEDS ORDERED: AMIODARONE HCL200 MG PO (12:29)
[2019-07-06] MEDS ORDERED: PERCOCET 5-3251 TAB PO (12:39)
--- NOTE | 2019-07-06 13:05 | NUR ---
CARDIOLOGY FOLLOW UP APPOINTMENT SET UP FOR Jun AT 1530.
[2019-07-06] MEDS ORDERED: TOPROL XL25 MG PO (13:10)
[2019-07-06] MEDS ORDERED: PREDNISONE10 MG PO (13:15)
--- NOTE | 2019-07-06 14:49 | NUR ---
PT DISCHARGED HOME. DISCHARGE INSTRUCTIONS REVIEWED WITH PT. R-FOREARM PIV DC'D WITH CATHETER INTACT. MIDSTERNAL DRESSING REMOVED PER ORDERS. PERSONAL BELONGINGS SENT WITH PATIENT. WHEELED OUT TO PERSONAL VEHICLE.
--- NOTE | 2019-07-06 18:56 | MORECARE ---
CASE MANAGEMENT DISCHARGE SUMMARY PATIENT: RADHA NICOLAS UNIT: [id number] ADM DATE: 06/28/19 AGE: 74 : 47 SEX: M ROOM/BED: D[facility] AUTHOR: SEBASTIAN,DOC PHYSICIAN: REFERRING PHYSICIAN: GEETA BERG MD DATE OF SERVICE: 07/06/19 Discharge Plan Patient Name: RADHA NICOLAS Facility: [facility]:[place] : 1945 Planned Disposition: Home Anticipated Discharge Date: Discharge Date: 07/06/2019 Expected LOS: Initial Reviewer: [email or web address] Initial Review Date: 06/28/2019 Generated: 07/06/19 7:55 pm DCP- Discharge Planning Updated by [email or web address]: Jessica Blanca on 07/01/19 5:[address] LATE ENTRY 06/29/19 Patient Name: RADHA NICOLAS Admission Status: Urgent Accout number: [id number] Admission Date: 06-28-2019 : 1945 Admission Diagnosis: Attending: GEETA BERG Current LOS: 3 Anticipated DC Date: Planned Disposition: Home Primary Insurance: [facility] MEDICARE SOLUTIONS Discharge Planning Comments: CM met with patient at bedside after explaining CM role and obtaining verbal consent. Patient lives at home with his Loretta where he is independent with his care and plans to return there upon discharge. Patient feels this would be a safe discharge. CM discussed availability / needs of home health and medical equipment. Patient has home 02 / portable, CPAP and Nebulizer with [employer]. Patient denies any discharge needs at this time. Patient states he will have his family drive him home upon discharge. CM will continue to follow and assist as needed with discharge planning / needs. Interpersonal Communications Professor: Jessica Blanca DCPIA - Discharge Planning Initial Assessment Updated by [id number]: Jessica Blanca on 07/01/19 6:05 pm * Is the patient Alert and Oriented? Yes * How many steps to enter\exit or inside your home? * PCP [facility] * Pharmacy [facility] * Preadmission Environment Home with Family * ADLs Independent * Other Equipment HOME 02 / PORTABLE, CPAP, NEBULIZER - [facility] * List name and contact numbers for known caregivers / representatives who currently or will assist patient after discharge: LORETTA NICOLAS - SPOUSE - [phone] * Verbal permission to speak to the caregivers and representatives has been obtained from the patient. Yes * Community resources currently utilized None * Additional services required to return to the preadmission environment? No * Can the patient safely return to the preadmission environment? Yes * Has this patient been hospitalized within the prior 30 days at any hospital? No Coverage Notice Reviewer: [email or web address] Chadwick Blanca Notice Issued Date-Time: 07/06/2019 14:20 Notice Type: IM Discharge Notice Notice Delivered To: Patient Relationship to Patient: Self Contract Agent Name: Delivery Method: HAND - Hand Delivered Jacinda Days: Prior Verbal Notification: Recipient Understood Notice: Yes Recipient Signature: Yes Med Rec Note Co-signed by Attending: Coverage Notice Comment: Last DP export: 07/01/19 5:16 pm Patient Name: RADHA NICOLAS Page 10712 at 1856 All edits/amendments must be made on the electronic document DICTATION DATE: 07/06/191854 INVENTORY ANALYST: MARILIN 07/06/191854 RPT#: [id number] DC DATE:07/06/19 STATUS: DIS IN [facility] [address] [place] [address] END OF REPORT
== END 2019-07-06 14:52 | disposition home or self-care (01) | DRG 236 ==
LOC: D.SDCHOLD 08:00 → D.CVICU 06-28 05:00 → D.SDCHOLD 06-28 07:30 → D.CVICU 06-28 10:32
PROVIDERS: Internal Medicine Cardiovascular Disease; Internal Medicine Pulmonary Disease; ADMIT Thoracic Surgery (Cardiothoracic Vascular Surgery); ATTEND Thoracic Surgery (Cardiothoracic Vascular Surgery)
PROC: 021309W Bypass Coronary Artery, Four or More Arteries from Aorta with Autologous Venous Tissue, Open Approach (ICD-10-PCS; 2019-06-28)
PROC: 06BP4ZZ Excision of Right Saphenous Vein, Percutaneous Endoscopic Approach (ICD-10-PCS; 2019-06-28)
PROC: 5A1221Z Performance of Cardiac Output, Continuous (ICD-10-PCS; 2019-06-28)
PROC: B24BZZ4 Ultrasonography of Heart with Aorta, Transesophageal (ICD-10-PCS; 2019-06-28)
PROC: 02100Z9 Bypass Coronary Artery, One Artery from Left Internal Mammary, Open Approach (ICD-10-PCS; principal; 2019-06-28 07:30)
DX: I25.10 Atherosclerotic heart disease of native coronary artery without angina pectoris (principal); D62 Acute posthemorrhagic anemia; J98.11 Atelectasis; J44.9 Chronic obstructive pulmonary disease, unspecified; G47.33 Obstructive sleep apnea (adult) (pediatric); M19.90 Unspecified osteoarthritis, unspecified site; Z85.46 Personal history of malignant neoplasm of prostate; D72.829 Elevated white blood cell count, unspecified; J30.9 Allergic rhinitis, unspecified; E88.01 Alpha-1-antitrypsin deficiency; K76.89 Other specified diseases of liver; I10 Essential (primary) hypertension; K59.00 Constipation, unspecified

== ENCOUNTER → 2019-07-14 08:53 | Outpatient (CLI) | payer MEDICARE ==
[2019-06-29 09:25] VITALS: BMI 37.7
[~2019-07-14 08:53] MED LIST changes: +AMIODARONE HCL200 MG PO; +ASPIRIN EC81 M1 PO; +PERCOCET 5-3251 TAB PO; +PREDNISONE10 MG PO; +TOPROL XL25 MG PO
[2019-07-14 09:46] LABS: BASOPHILS 0.2 % (0-2); EOSINOPHILS 1.7 % (0-7); HEMATOCRIT 39.4 % (42.0-54.0); HEMOGLOBIN 13.2 g/dL (13.5-17.5); IMMATURE GRANULOCYTES 1.3 % (0-5); LYMPHOCYTES 5.2 % (15-50); MCH 29.9 pg (26.0-34.0); MCHC 33.5 g/dL (31.0-37.0); MCV 89.1 fL (80.0-100.0); MEAN PLATELET VOLUME 8.2 fL (7.4-10.4); MONOCYTES 7.5 % (2-11); NEUTROPHILS 84.1 % (40-80); PLATELET COUNT 620 10x3/uL (130-400); RBC 4.42 10x6/uL (4.20-6.10); RDW 14.9 % (11.5-14.5); WBC 12.9 10x3/uL (4.8-10.8)
[2019-07-14 10:03] LABS: ALBUMIN 3.1 g/dL (3.4-5.0); ANION GAP 10.6 mmol/L (8-16); BILIRUBIN - TOTAL 0.49 mg/dL (0.2-1.3); CALCIUM 8.6 mg/dL (8.5-10.1); CARBON DIOXIDE 27.5 mmol/L (21.0-32.0); CREATININE - SERUM 1.2 mg/dL (0.6-1.3); POTASSIUM - SERUM 4.1 mmol/L (3.5-5.1); PROTEIN - SERUM 6.8 g/dL (6.4-8.2)
== END | disposition home or self-care (01) ==
LOC: D.RAD 08:53
PROVIDERS: ATTEND Thoracic Surgery (Cardiothoracic Vascular Surgery)
DX: I25.10 Atherosclerotic heart disease of native coronary artery without angina pectoris (principal); R06.00 Dyspnea, unspecified; Z95.1 Presence of aortocoronary bypass graft

== ENCOUNTER → 2019-07-28 09:56 | Outpatient (CLI) | payer MEDICARE ==
[2019-06-29 09:25] VITALS: BMI 37.7
[2019-07-28 10:49] LABS: BASOPHILS 0.3 % (0-2); EOSINOPHILS 2.3 % (0-7); HEMATOCRIT 39.7 % (42.0-54.0); HEMOGLOBIN 12.9 g/dL (13.5-17.5); IMMATURE GRANULOCYTES 0.7 % (0-5); LYMPHOCYTES 10.8 % (15-50); MCHC 32.5 g/dL (31.0-37.0); MCV 89.2 fL (80.0-100.0); MEAN PLATELET VOLUME 8.8 fL (7.4-10.4); MONOCYTES 10.3 % (2-11); NEUTROPHILS 75.6 % (40-80); RBC 4.45 10x6/uL (4.20-6.10)
[2019-07-28 10:55] LABS: ALBUMIN 3.4 g/dL (3.4-5.0); ANION GAP 8.4 mmol/L (8-16); BILIRUBIN - TOTAL 0.37 mg/dL (0.2-1.3); CALCIUM 8.9 mg/dL (8.5-10.1); CARBON DIOXIDE 29.8 mmol/L (21.0-32.0); CREATININE - SERUM 1.2 mg/dL (0.6-1.3); POTASSIUM - SERUM 4.2 mmol/L (3.5-5.1); PROTEIN - SERUM 7.2 g/dL (6.4-8.2)
[2019-07-28 11:01] LABS: PLATELET COUNT 267 10x3/uL (130-400)
== END | disposition home or self-care (01) ==
LOC: D.LAB 09:56
PROVIDERS: ATTEND Family Medicine
DX: I25.10 Atherosclerotic heart disease of native coronary artery without angina pectoris (principal); R06.00 Dyspnea, unspecified; Z95.1 Presence of aortocoronary bypass graft

== ENCOUNTER → 2019-08-19 13:44 | Outpatient (CLI) | payer MEDICARE ==
[2019-06-29 09:25] VITALS: BMI 37.7
== END | disposition home or self-care (01) ==
LOC: D.RT 13:44
PROVIDERS: ATTEND Internal Medicine Pulmonary Disease
DX: J44.9 Chronic obstructive pulmonary disease, unspecified (principal)

== ENCOUNTER → 2020-02-29 11:09 | Outpatient (CLI) | payer MEDICARE ==
[2019-06-29 09:25] VITALS: BMI 37.7
== END | disposition home or self-care (01) ==
LOC: D.RT 11:09
PROVIDERS: ATTEND Internal Medicine Pulmonary Disease
DX: J44.9 Chronic obstructive pulmonary disease, unspecified (principal); J98.11 Atelectasis